=== PATIENT | female | born 1990 | race American Indian/Alaskan Native ===

== ENCOUNTER 2017-06-13 14:33 | Emergency (ER) | payer OTHER ==
[2017-06-13 14:38] VITALS: BP 112/54
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
[2017-06-13] MEDS ORDERED: MOTRIN PO ONE (18:03)
== END 2017-06-13 18:53 | disposition home or self-care (01) ==
LOC: ED 14:33
DX: S13.4XXA Sprain of ligaments of cervical spine, initial encounter (principal); V89.2XXA Person injured in unspecified motor-vehicle accident, traffic, initial encounter; Y93.9 Activity, unspecified; Y99.9 Unspecified external cause status; Y92.410 Unspecified street and highway as the place of occurrence of the external cause
CPT/HCPCS: 99282